=== PATIENT | female | born 1985 | race Caucasian/White ===

== ENCOUNTER 2017-06-12 09:41 | Emergency (ER) | payer BC, OTHER, SELFPAY ==
[2017-06-12] MEDS ORDERED: Lidocaine 1% (PF) 30 ML VIAL ONE (10:16)
[2017-06-12] MEDS ORDERED: Bupivacaine 0.5% 10 ML VIAL ONE (10:16)
[2017-06-12] MEDS ORDERED: Bacitracin Zinc 1 Packet ONE (11:14)
--- NOTE | 2017-06-12 11:18 | RAD ---
THREE VIEWS OF THE LEFT HAND: COMPARISON: None. HISTORY: Thumb laceration. FINDINGS: Three views of the left hand show a laceration to the tip of the thumb. No underlying osseous abnor mality is seen. No radiopaque foreign body is present. No degenerative changes are seen. IMPRESSION: No evidence of acute osseous abnormality. POS: [facility]
[2017-06-12] MEDS ORDERED: Adacel (T-DAP) 0.5 ML VIAL ONE (11:48)
== END 2017-06-12 12:10 | disposition home or self-care (01) ==
LOC: ERS 09:41
DX: S61.112A Laceration without foreign body of left thumb with damage to nail, initial encounter (principal); E03.9 Hypothyroidism, unspecified; W45.8XXA Other foreign body or object entering through skin, initial encounter
CPT/HCPCS: 11760; 90471; 90715; J2001; J3490